=== PATIENT | male | born 1975 | race Two or more races ===

== ENCOUNTER 2016-12-01 03:29 | Emergency (ER) | payer BC ==
[2016-12-01 03:32] VITALS: BMI 29.2
--- NOTE | 2016-12-01 03:59 | ED PDOC ---
Arrival/HPI - General Chief Complaint: Foreign Body Time Seen by Provider: 12/01/16 03:35 Historian: Patient - History of Present Illness Narrative History of Present Illness (Text): 12/01/16 03:56 A 41 year old male presents to the emergency department complaining of one week duration foreign body sensation during swallowing. Patient notes this started after eating chicken wings. Patient denies any other complaints at this time. Time/Duration: 1 week Symptom Onset: Sudden Symptom Course: Unchanged Activities at Onset: Rest Context: Home Associated Symptoms (Text): none Past Medical History - Provider Review Nursing Documentation Reviewed: Yes - Infectious Disease Hx of Infectious Diseases: None - Psychiatric Hx Substance Use: No - Surgical History Hx Orthopedic Surgery: Yes (R knee surgery) - Anesthesia Hx Anesthesia: Yes Hx Anesthesia Reactions: No Hx Malignant Hyperthermia: No Family/Social History - Physician Review Nursing Documentation Reviewed: Yes Family/Social History: No Known Family HX Smoking Status: Never Smoked Hx Alcohol Use: No Hx Substance Use: No Allergies/Home Meds Allergies/Adverse Reactions: Allergies No Known Allergies Allergy (Verified 05/27/16 12:15) Review of Systems - Physician Review All systems were reviewed & negative as marked: Yes Physical Exam - Physical Exam Narrative Physical Exam (Text): 12/01/16 03:58- Review of Systems Constitutional: Normal. absent: Fatigue, Weight Change, Fevers Eyes: Normal ENT: Present: foreign body sensation during swallowing Respiratory: Normal absent: SOB, Cough, Sputum Cardiovascular: Normal absent: Chest pain, Palpitations, Syncope Gastrointestinal: Normal absent: Abdominal pain, Diarrhea, Nausea, Vomiting Genitourinary: Normal. absent: Dysuria, Frequency, Hematuria Musculoskeletal: Normal. absent: Arthralgias, Back Pain, Neck Pain Skin: Normal Neurological: Normal absent: Focal Weakness Endocrine: Normal Hemo/Lymphatic: Normal Psychiatric: Normal - Physical exam Patient appears age appropriate, speaking full sentences without difficulty - Systems Exam Head: Present: Atraumatic, Normocephalic Pupils: Present: PERRL Extraocular Muscles: Present: EOMI Conjunctiva: Present: Normal Mouth: Present: Moist Mucous Membranes Neck: Present: Normal Range of Motion. No: MIDLINE TENDERNESS, Paraspinal Tenderness Respiratory/Chest: Present: Clear to Auscultation, Good Air Exchange. No: Respiratory Distress, Accessory Muscle Use, Tachypneic Cardiovascular: Present: Regular Rate and Rhythm, Normal S1, S2, Peripheral Pulses Present. No: Murmurs Abdomen: Present: Normal Bowel Sounds, No: Tenderness, Peritoneal Signs, Rebound, Guarding, Distention Back: Present: Normal Inspection. No: Midline Tenderness, Paraspinal Tenderness Upper Extremity: Present: Normal Inspection. No: Cyanosis, Edema Lower Extremity: Present: Normal Inspection. No: Edema Neurological: Present: GCS=15, Speech Normal, cranial nerves II through XII fully intact with no cerebellar abnormality, neuro-sensory fully intact. No focal neurological deficits. Skin: Present: Warm, Dry, Normal Color. No: Rashes Lymphatic: Present: OX3, NI, NC Psychiatric: Present: Alert, Oriented x 3, Normal Insight, Normal Concentration Vital Signs Reviewed: Yes Vital Signs Temp Pulse Resp BP Pulse Ox 12/01/16 05:10 73 18 140/85 97 12/01/16 04:00 98.6 F 80 12 140/70 97 Temperature: Afebrile Blood Pressure: Normal Pulse: Regular Respiratory Rate: Normal Appearance: Positive for: Well-Appearing, Non-Toxic, Comfortable Pain Distress: None Mental Status: Positive for: Alert and Oriented X 3 - Systems Exam Mouth: No: Dry, Drooling Pharnyx: Present: Normal. No: ERYTHEMA, EXUDATE, Muffled/Hoarse Voice, Strider Medical Decision Making ED Course and Treatment: 12/01/16 03:59 Impression: A 41 year old male with foreign body sensation during swallowing for a week. On physical exam, patient had no acute findings. Differential Diagnosis include but are not limited to: foreign body, abscess Plan: -- CT neck -- Reassess and disposition Prior Visits: Notes and results from previous visits were reviewed. Patient last seen in the emergency department on 05/27/16 for evaluation of lacerations to 3rd, 4th and 5th fingers. Patient was discharged home with rx for Keflex. Progress Notes: CT neck: IMPRESSION: Right parapharyngeal foreign body at the epiglottic base, at the level of the hyoid bone as described in detail above. Dictated and Authenticated by: Lucrecia Muñiz MD 12/01/2016 5:01 AM Eastern Time ([place] & [place]) 12/01/16 06:[address] Brooke in detail. he spoke with patient over the phone as well. states to give abx and dc home. he took pt's cell phone number and states will contact pt later this morning to determine f/u in office or same day pt in no distress, agrees with plan Pt states he understands to return to the ER right away for new or worsening symptoms or for inability to f/u with PMD or specialist as instructed. Patient states that he fully agrees with and understands discharge instructions. States that he agrees with the plan and disposition. Verbalized and repeated discharge instructions and plan. I have given the patient opportunity to ask any additional questions. - RAD Interpretation Radiology Orders: 12/01/16 03:35 NECK SOFT TISSUE W/O CONTRAST [CT] Stat - Medication Orders Current Medication Orders: Discontinued Medications Clindamycin HCl (Cleocin) 600 mg PO STAT STA PRN Reason: Protocol Stop: 12/01/16 05:59 - Scribe Statement Mary Jane De Anda All medical record entries made by the Scribe were at my direction and personally dictated by me. I have reviewed the chart and agree that the record accurately reflects my personal performance of the history, physical exam, medical decision making, and the department course for this patient. I have also personally directed, reviewed, and agree with the discharge instructions and disposition. Disposition/Present on Arrival - Present on Arrival Any Indicators Present on Arrival: No History of DVT/PE: No History of Uncontrolled Diabetes: No Urinary Catheter: No History of Decub. Ulcer: No History Surgical Site Infection Following: None - Disposition Have Diagnosis and Disposition been Completed?: Yes Diagnosis: Foreign body Disposition: HOME/ ROUTINE Disposition Time: 05:59 Patient Plan: Discharge Patient Problems: Current Active Problems Problem Status Onset Foreign body Acute Condition: GOOD Discharge Instructions (ExitCare): Esophageal Foreign Body (ED) Additional Instructions: PLEASE RETURN TO THE EMERGENCY DEPARTMENT FOR NEW OR WORSENING SYMPTOMS. Dr. Brooke will call you later this morning to arrange follow up in his office or surgery Please return to the ER right away if you cannot arrange follow up Prescriptions: Clindamycin [Cleocin] 600 mg PO BID #[id number] cap Referrals: Christian Greenfield MD [Primary Care Provider] - Follow up with primary Juan Ramon Brooke DO [Staff Provider] - Follow up with primary Forms: WORK NOTE
[2016-12-01 04:02] VITALS: TEMP 98.6; O2SAT 97
--- NOTE | 2016-12-01 05:01 | CT ---
EXAM: CT Neck Without Intravenous Contrast CLINICAL HISTORY: 41 years old, male; Pain; Painful swallowing; Additional info: Fb TECHNIQUE: Axial computed tomography images of the neck without intravenous contrast. This CT exam was performed using one or more of the following dose reduction techniques: automated exposure control, adjustment of the mA and/or kV according to patient size, and/or use of iterative reconstruction technique. Coronal and sagittal reformatted images were created and reviewed. EXAM DATE/TIME: 12/01/2016 3:35 AM COMPARISON: No relevant prior studies available. FINDINGS: In the right parapharyngeal region, at the level of the epiglottic base, on sagittal image 44, coronal image 30, axial image 49, there is an approximately 4 x7 mm hyperdense, slightly heterogeneous foreign body. It is located approximately 6 mm anterior to the airway and in close proximity to to the hyoid bone (approximately 2 mm medial to the hyoid bone) . There is a small amount of air adjacent to the foreign body. Evaluate for abscess collection is limited by lack of intravenous contrast. Numerous small lymph nodes are noted throughout the neck. The airway is patent. Normal epiglottis is identified. No significant fluid in the sinuses or mastoid air cells. Osteophyte formation in the spine. IMPRESSION: Right parapharyngeal foreign body at the epiglottic base, at the level of the hyoid bone as described in detail above.
[2016-12-01 05:12] VITALS: BP 140/85; PULSE 73; RESP 18
== END 2016-12-01 06:40 | disposition home or self-care (01) ==
LOC: ED 03:29
DX: T18.198A Other foreign object in esophagus causing other injury, initial encounter (principal); X58.XXXA Exposure to other specified factors, initial encounter; Y93.89 Activity, other specified; Y92.89 Other specified places as the place of occurrence of the external cause